=== PATIENT | female | born 1980 | race Caucasian/White ===

== ENCOUNTER 2021-01-06 10:40 | Emergency (ER) | payer OTHER ==
[~2021-01-06] VITALS: Ht 165.1 cm; Wt 114.3 kg
[~2021-01-06 10:40] MED LIST: APAP500 PO; DERMOPLAST SPRA56 ML; FIRST-PROGESTER25 MG VG; HYDROCORTISONE30 G9 RE; IBUPROFEN 600600 M1 PO; LANOLIN56 GM; MECLIZINE HCL25 M1 PO; TUCKS MEDICATE1 EAC1 TOP; ZOFRAN4 MG PO
[2021-01-06 11:30] LABS: ABSOLUTE NEUTROPHILS 3.5 thou/uL (1.4-8.2); BASOPHILS 0.5 % (0.0-2.0); EOSINOPHILS 1.1 % (0.0-3.0); HEMATOCRIT 39.9 % (37.0-47.0); HEMOGLOBIN 13.3 gm/dL (12.0-15.0); MCH 27.8 pg (26.0-34.0); MCHC 33.3 g/dL (28.0-37.0); MCV 83.5 fL (80.0-100.0); MONOCYTES 6.3 % (1.0-8.0); PLATELET COUNT 205 thou/uL (150-400); POLYS 56.1 % (36.0-66.0); RBC 4.78 mil/uL (4.20-5.00); RDW 13.6 % (10.5-14.5); WBC 6.2 thou/uL (4.0-11.0)
[2021-01-06 11:42] LABS: ANION GAP 9 mmol/L (7-16); BUN 12 mg/dL (7-18); CALCIUM 8.9 mg/dL (8.5-10.1); CHLORIDE 104 mmol/L (98-107); CO2 25 mmol/L (21-32); CREATININE 0.7 mg/dL (0.6-1.0); GLUCOSE 109 mg/dL (74-106); POTASSIUM 4.1 mmol/L (3.5-5.1); SODIUM 138 mmol/L (136-145)
[2021-01-06 11:52] LABS: ALBUMIN 3.6 g/dL (3.4-5.0); LIPASE 73 U/L (73-393); SGOT 17 U/L (15-37); SGPT 36 U/L (14-59); TOTAL BILIRUBIN 0.3 mg/dL (0.2-1.0); TOTAL PROTEIN 7.3 g/dL (6.4-8.2); TROPONIN-I <0.06 ng/mL (<0.06)
[2021-01-06 13:57] VITALS: BP 127/76
--- NOTE | 2021-01-07 07:02 | EKG ---
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
== END 2021-01-06 13:58 | disposition home or self-care (01) ==
LOC: ER 10:40
PROVIDERS: Emergency Medicine
DX: R07.9 Chest pain, unspecified (principal); Z79.1 Long term (current) use of non-steroidal anti-inflammatories (NSAID)

== ENCOUNTER 2021-04-18 00:37 | Emergency (ER) | payer OTHER ==
[~2021-04-18] VITALS: Ht 165.1 cm; Wt 113.4 kg
[2021-04-18 00:43] VITALS: BP 161/99
== END 2021-04-18 02:52 | disposition home or self-care (01) ==
LOC: ER 00:37
DX: J40 Bronchitis, not specified as acute or chronic (principal); F41.9 Anxiety disorder, unspecified; Z20.822 Contact with and (suspected) exposure to COVID-19

== ENCOUNTER 2021-09-20 18:14 | Emergency (ER) | payer OTHER ==
[~2021-09-20] VITALS: Ht 165.1 cm; Wt 113.8 kg
[2021-09-20 18:52] LABS: ABSOLUTE NEUTROPHILS 3.1 thou/uL (1.4-8.2); BASOPHILS 0.8 % (0.0-2.0); EOSINOPHILS 1.4 % (0.0-3.0); HEMATOCRIT 40.1 % (37.0-47.0); HEMOGLOBIN 13.4 gm/dL (12.0-15.0); LYMPHOCYTES 30.3 % (24.0-44.0); MCH 27.6 pg (26.0-34.0); MCHC 33.4 g/dL (28.0-37.0); MCV 82.7 fL (80.0-100.0); MONOCYTES 7.7 % (1.0-8.0); PLATELET COUNT 204 thou/uL (150-400); POLYS 59.8 % (36.0-66.0); RBC 4.85 mil/uL (4.20-5.00); RDW 13.3 % (10.5-14.5); WBC 5.2 thou/uL (4.0-11.0)
[2021-09-20] MEDS ORDERED: XANAX 1 MG TABLE1 MG PO (18:56)
[2021-09-20 19:05] LABS: CALCIUM 8.6 mg/dL (8.5-10.1); CREATININE 0.7 mg/dL (0.6-1.0); POTASSIUM 3.8 mmol/L (3.5-5.1)
[2021-09-20 20:00] VITALS: BP 121/78
== END 2021-09-20 20:00 | disposition home or self-care (01) ==
LOC: ER 18:14
PROVIDERS: Emergency Medicine
DX: U07.1 COVID-19 (principal); F41.9 Anxiety disorder, unspecified; Z90.49 Acquired absence of other specified parts of digestive tract

== ENCOUNTER 2021-11-24 14:03 | Emergency (ER) | payer OTHER ==
[~2021-11-24] VITALS: Ht 165.1 cm; Wt 113.0 kg
[~2021-11-24 14:03] MED LIST changes: +XANAX 1 MG TABLE1 MG PO
[2021-11-24 14:46] LABS: LIPASE 81 U/L (73-393)
[2021-11-24] MEDS ORDERED: FLEXERIL PO (15:14)
[2021-11-24 15:35] VITALS: BP 149/81
--- NOTE | 2021-11-24 16:04 | EKG ---
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: : 1980 Requested By: Rivas Suarez Order Number: [id number] MD: Kishan Lezama Measurements Intervals [place] Rate: 105 P: 63 IL: 118 QRS: 56 QRSD: 83 T: 6 QT: 341 QTc: 451 Interpretive Statements Sinus tachycardia Probable left atrial enlargement Baseline wander in lead(s) V1,V2 Compared to ECG 01/06/2021 10:48:13 Sinus rhythm no longer present Electronically Signed On 11-24-2021 16:04:01 [employer] by Kishan Lezama [email or web address] <ELECTRONICALLY SIGNED> By: Kishan Lezama MD, [facility] 11/24/21 1604 06 06 Kishan Lezama MD, FACC /EPI
== END 2021-11-24 15:37 | disposition home or self-care (01) ==
LOC: ER 14:03
PROVIDERS: Physician Assistant
DX: U07.1 COVID-19 (principal); R07.89 Other chest pain; F41.9 Anxiety disorder, unspecified; Z90.49 Acquired absence of other specified parts of digestive tract; Z90.89 Acquired absence of other organs